=== PATIENT | male | born 1945 | race Caucasian/White ===

== ENCOUNTER 2021-06-13 08:54 | Day surgery (SDC) | payer MEDICARE ==
[2021-06-13] VITALS (14 sets, daily range): BP systolic 141–187; BP diastolic 67–100
[~2021-06-13] VITALS: Ht 173 cm; Wt 92.0 kg
--- OUTSIDE RECORDS SUMMARY | 2021-06-13 08:58 | XMS REPORT ---
Author Walter Oglesby Organization [facility] Address [address] [place], [place] [address] Care Team Providers Care Asbestos Hazard Abatement Worker Name Role Phone Josefina Mazariegos PCP Allergies and Adverse Reactions Not available. Plan of Treatment Planned Activity Comments Planned Date Planned Time Plan/Goal CMP 03/17/2019 12:00 AM CBC W/ AUTO DIFF (RFLX MAN DIFF IF IND). 05/28/2021 12:00 AM CMP 05/28/2021 12:00 AM LIPID PANEL 05/28/2021 12:00 AM HGB A1C 05/28/2021 12:00 AM PSA TOTAL 05/28/2021 12:00 AM Medications Active Name Start Date Estimated Completion Date SIG Co mments Aspir-81 81 mg oral tablet,delayed release (DR/EC) take 1 tablet (81 mg) by oral route once daily carvedilol 25 mg tablet 01/12/2021 07/11/2021 ... TAKE 1 TABLET BY MOUTH TWICE DAILY WITH FOOD ... furosemide 20 mg tablet 05/11/2021 10/08/2021 TAKE 1 T ABLET BY MOUTH DAILY ... INCREASE TO 2 TABLETS FOR 5 DAYS THEN RESUME NORMAL DOSAGE ... diazepam 5 mg oral tablet 05/11/2021 08/09/2021 take 1 tablet (5 mg) by oral route 3 times per day as needed for 90 days amlodipine 5 mg tablet 05/12/2021 02/06/2022 ... TAKE 1 TABLET BY MOUTH EVERY DAY ... lisinopril 20 mg tablet 05/12/2021 02/06/2022 ... TAKE 1 TABLET BY MOUTH EVERY DAY ... meloxicam 15 mg tablet 05/12/2021 02/06/2022 ... TAKE 1 TABLET BY MOUTH EVERY DAY ... isosorbide mononitrate ER 30 mg tablet,extended release 24 h r 05/23/2021 05/18/2022 ... TAKE 1 TABLET BY MOUTH EVERY DAY IN THE MORNING .. . Name Start Date Expiration Date SIG Comments azithromycin 500 mg oral tablet 05/14/2021 05/21/2021 take 1 tablet (500 mg) by oral route once daily for 7 days prednisone 20 mg oral tablet 05/14/2021 05/21/2021 kuldip e 1 tablet (20 mg) by oral route once daily for 7 days Discontinued Name Start Date Discontinued Date SIG Comments Lopid 600 mg oral tablet 03/21/2019 04/14/2021 take 1 tablet (600 mg) by oral route 2 times per day 30 minutes before morning and evening meal for 30 days metformin 500 mg oral tablet 03/21/2019 04/14/2021 kuldip e 1 tablet (500 mg) by oral route 2 times per day with morning and evening meals for 30 days Silvadene 1 % topical cream 04/10/2019 04/14/2021 appl y a 1/16 inch (1.5 mm) thick layer to area by topical route 2 times per day furosemide 20 mg oral tablet 04/10/2019 04/14/2021 Kuldip e 1 Tablet (20 mg) by mouth daily Increase to 2 tablets for 5 days then resume normal dosage. Augmentin 875-125 mg oral tablet 04/14/2019 04/14/2019 take 1 tablet by oral route every 12 hours for 7 days Levaquin 500 mg oral tablet 05/02/2019 04/14/2021 take 1 tablet (500 mg) by oral route once daily for 10 days Problem List Not available. Vital Signs Date Time BP-Sys(mm[Hg] BP-Justyna(mm[Hg]) HR(bpm) RR(rpm) Temp WT HT HC BMI BSA BMI Percentile O2 Sat(%) 05/14/2021 9:41:00 AM 140 mm[Hg] 72 mm[Hg] 69 {beats}/min 20 rpm 102.2 F 96 % 2019 10:57:00 AM 156 mm[Hg] 82 mm[Hg] 72 {beats}/min 18 rpm 98.1 F 209.312 lbs 70 in 30.0329 kg/m2 2.1654 m2 96 % 04/23/2019 11:03:00 AM 170 mm[Hg] 84 mm[Hg] 74 {beats}/min 18 rpm 98.8 F 211 lbs 70 in 30.28 kg/m2 2.17 m2 94 % 04/14/2019 11:31:00 AM 150 mm[Hg] 88 mm[Hg] 75 {beats}/min 18 rpm 99 F 211 lbs 70 in 30.275 kg/m2 2.1742 m2 96 % 04/10/2019 11:10:00 AM 150 mm[Hg] 78 mm[Hg] 67 {beats}/min 18 rpm 98.4 F 211 lbs 70 in 30.28 kg/m2 2.17 m2 96 % 03/17/2019 11:15:00 AM 190 mm[Hg] 100 mm[Hg] 67 {beats}/min 18 rpm 98.4 F 215 lbs 70 in 30.849 kg/m2 2.1947 m2 96 % Social History Name Description Comments Tobacco Never smoker History of Procedures Date Ordered Description Order Status 03/17/2019 12:00 AM LIPID PANEL Reviewed 03/17/2019 12:00 AM GLYCOSYLATED HEMOGLOBIN TEST Reviewed 03/17/2019 12:00 AM COMPLETE CBC W/AUTO DIFF WBC Reviewed 03/17/2019 12:00 AM ASSAY THYROID STIM HORMONE Reviewed 03/17/2019 12:00 AM ROUTINE VENIPUNCTURE Reviewed 04/10/2019 12:00 AM Rocephin 1 gram Injection Reviewed 04/10/2019 12:00 AM X-RAY EXAM OF FOOT Reviewed 04/10/2019 12:00 AM THER/PROPH/DIAG INJ SC/IM Reviewed 04/10/2019 12:00 AM TD VACCINE NO PRSRV 7/> IM Reviewed 04/10/2019 12:00 AM MICROBIOLOGY PROCEDURE Reviewed 2019 12:00 AM Decadron 8mg Injection Reviewed 2019 12:00 AM Depo-Medrol 80mg Injection Reviewed 2019 12:00 AM THER/PROPH/DIAG INJ SC/IM Reviewed 05/14/2021 12:00 AM COVID-19 Testing Reviewed 05/28/2021 12:00 AM COLLECTION VENOUS BLOOD VENIPUNCTURE Rev iewed Results Summary Date and Description Results 03/17/2019 4:59 PM GLUCOSE 138 SODIUM 140 POTAS SIUM 4.4 CHLORIDE 106.0 mmol/LCO2 25 BUN 25.0 mg/dLCREATININE 1.0 mg/dLSGOT/AST 19 SGPT/ALT 25 ALK PHOS 54 TOTAL PROTEIN 7.5 ALBUMIN 4.6 TOTAL BILI 0.6 CALCIUM 9.70 mg/dLAGE 73 GFR NonAA 74 GFR AA 90 eGFR 74 eGFR AA* >60 mL/min/1.73 [id number] 187 CHOLESTEROL 189.0 mg/dLHDL 37 TOT CHOL/HDL 5.1 LDL (CALC) 115 WBC 3.1 RBC 3.37 HGB 10.70 g/dLHCT 32.90 %MCV 98.0 fLMCH 31.80 pgMCHC 32.50 g/dLRDW SD 52 fLRDW CV 14.90 %MPV 13.80 fLPLT 87 NRBC# 0.00 NRBC% 0.0 %NEUT 24.9 %LYMP 54.2 %MONO 16.5 %EOS 0.6 %BASO 0.3 #NEUT 0.77 #LYMP 1.68 #MONO 0.51 #EOS 0.02 #BASO 0.01 MANUAL DIFF SEE BELOW SEGS 22 BANDS 8 LYMPHS 50 MONOS 15 EOS 3 METAS 2 TSH 0.74 HGB A1C 8.10 %Est Avg Glucose 185.8 05/14/2021 12:54 PM [id number] NOT DETECTED History Of Immunizations Name Date Admin Mfg Name Mfg Code Trade Name Lot# Route Inj Vis Given Vis Pub CVX Td 04/10/2019 GlaxveriCARine SKB KINRIX Intramuscular L eft Upper Arm 04/10/2019 09/03/2021 113 History of Past Illness Name Date of Onset Comments Hypertension Diabetes Anxiety Hyperlipidemia Diabetes Mar 17 2019 11:19AM Hypertension Mar 17 2019 11:19AM Hyperlipemia Mar 17 2019 11:19AM Hypothyroidism Mar 17 2019 11:19AM Cellulitis of left foot Apr 10 2019 11:19AM Cellulitis of left foot Apr 11 2019 9:10AM Pain of toe of right foot Apr 14 2019 11:34AM Cellulitis of right lower extremity Apr 14 2019 11:34AM Cellulitis of left foot Apr 23 2019 11:06AM Sinusitis 2019 11:01AM Left foot pain 2019 11:01AM Cellulitis of left lower extremity 2019 11:01AM HTN (hypertension) Apr 14 2021 1:05PM Diabetes Apr 14 2021 1:05PM Fever May 14 2021 9:43AM Cough Sep 11 2021 9:43AM SOB (shortness of breath) on exertion May 14 2021 9:43AM Diabetes May 28 2021 8:52AM HTN (hypertension) May 28 2021 8:52AM Hyperlipidemia May 28 2021 8:52AM Screening for prostate cancer May 28 2021 8:52AM Payers Insurance Name Company Name Plan Name Plan Number Policy Number Moncho cy Group Number Start Date Medicare RHC Medicare RHC [id number] N/ A [id number] N/ A Medicare Part B Medicare Of [place] [id number] N/A Medicare Part A Medicare - Lab/Xray [id number] N/A History of Encounters Visit Date Visit Type Provider 05/28/2021 Laboratory Josefina Mazariegos APR N 05/14/2021 Office visit Josefina Mazariegos APR N 04/14/2021 Office visit Frida English BRAKES INSPECTOR 2019 Office visit Frida English BRAKES INSPECTOR 04/23/2019 Office visit Frida English BRAKES INSPECTOR 04/14/2019 Office visit Frida English BRAKES INSPECTOR 04/10/2019 Office visit Frida English BRAKES INSPECTOR 03/17/2019 Office visit Frida English BRAKES INSPECTOR
--- OUTSIDE RECORDS SUMMARY | 2021-06-13 08:58 | XMS REPORT ---
Author Walter Oglesby Organization [facility] Address [address] [place], [place] [id number] Care Team Providers Care Director Online Marketing Name Role Phone Josefina Mazariegos PCP Allergies and Adverse Reactions Not available. Plan of Treatment Planned Activity Comments Planned Date Planned Time Plan/Goal [facility] 03/17/2019 12:00 AM Medications Active Name Start Date [...] AM COVID-19 Testing Reviewed 05/28/2021 12:00 AM COMPLETE CBC W/AUTO DIFF WBC Reviewed 05/28/2021 12:00 AM COMPREHEN METABOLIC PANEL Reviewed 05/28/2021 12:00 AM LIPID PANEL Reviewed 05/28/2021 12:00 AM GLYCOSYLATED HEMOGLOBIN TEST Reviewed 05/28/2021 12:00 AM ASSAY OF PSA TOTAL Reviewed 05/28/2021 12:00 AM COLLECTION VENOUS BLOOD VENIPUNCTURE Rev iewed 06/03/2021 12:00 AM BL SMEAR W/DIFF WBC COUNT Returned 06/03/2021 12:00 AM COLLECTION VENOUS BLOOD VENIPUNCTURE Rev iewed 06/07/2021 12:00 AM BL SMEAR W/DIFF WBC COUNT Reviewed 06/08/2021 12:00 AM COLLECTION VENOUS BLOOD VENIPUNCTURE Rev iewed Results Summary Date and Description Results 03/17/2019 4:59 PM GLUCOSE 138 SODIUM 140 POTAS SIUM 4.4 CHLORIDE 106.0 mmol/LCO2 25 BUN 25.0 mg/dLCREATININE 1.0 mg/dLSGOT/AST 19 SGPT/ALT 25 ALK PHOS 54 TOTAL PROTEIN 7.5 ALBUMIN 4.6 TOTAL BILI 0.6 CALCIUM 9.70 mg/dLAGE 73 GFR NonAA 74 GFR AA 90 eGFR 74 eGFR AA* >60 mL/min/1.73 [id number] 187 CHOLESTEROL 189.0 mg/dLHDL 37 TOT CHOL/HDL [...] %Est Avg Glucose 185.8 05/14/2021 12:54 PM [id number] NOT DETECTED 05/28/2021 8:55 AM GLUCOSE 148 SODIUM 136 POTAS SIUM 4.2 CHLORIDE 105.0 mmol/LCO2 25 BUN 22.0 mg/dLCREATININE 1.20 mg/dLSGOT/AST 24 SGPT/ALT 16 ALK PHOS 61 TOTAL PROTEIN 7.7 ALBUMIN 3.9 TOTAL BILI 0.5 CALCIUM 9.10 mg/dLAGE 76 GFR NonAA 59 GFR AA 72 eGFR 59 mL/min/1.73meGFR AA* >60 mL/min/1.73mTRIGLYCERIDES 133 CHOLESTEROL 135.0 mg/dLHDL 40 TOT CHOL/HDL 3.4 LDL (CALC) 68 PSA TOTAL 1.090 ng/mLHGB A1C 6.0 %Est Avg Glucose 125.5 WBC 14.3 RBC 2.13 HGB 6.90 g/dLHCT 23.50 %MCV 110.0 fLMCH 32.40 pgMCHC 29.40 g/dLRDW SD 69 %RDW CV 17.90 %PLT 7 x10E3/uLNRBC# 0.10 NRBC% 0.7 %NEUT 44.4 %LYMP 19.7 %MONO 19.9 %EOS 0.1 %BASO 0.3 #NEUT 6.34 #LYMP 2.81 #MONO 2.85 #EOS 0.02 #BASO 0.05 MANUAL DIFF SEE BELOW SEGS 24 BANDS 16 LYMPHS 20 MONOS 16 EOS 1 METAS 15 MYELO 6 PROS 2 MACRO 3+ ANISO 2+ 06/07/2021 11:50 AM WBC 9.5 RBC 2.53 HGB 7.70 g/ dLHCT 25.80 %MCV 102.0 fLMCH 30.40 pgMCHC 29.80 g/dLRDW SD 59 %RDW CV 16.10 %PLT 6 x10E3/uLPLTS PLTS CHECKD NRBC# 0.06 NRBC% 0.6 %NEUT 41.3 %LYMP 24.3 %MONO 16.7 %EOS 0.3 %BASO 0.4 #NEUT 3.94 #LYMP 2.32 #MONO 1.59 #EOS 0.03 #BASO 0.04 SEGS 27 BANDS 17 LYMPHS 26 MONOS 14 EOS 3 METAS 5 MYELO 6 PROS 1 BLASTS 1 ATYP LYMPHS FEW MACRO 1+ ANISO 1+ POIK 1+ HYPO 1+ POLYCHROMASIA 1+ History Of Immunizations Name Date Admin Mf Name Mf Code Trade Name Lot# Route Inj Vis Given Vis Pub CVX Td 04/10/2019 GlaxoSmXMS Penvisionine SKB KINRIX Intramuscular L eft Upper Arm [...] 1:05PM Fever May 14 2021 9:43AM Cough May 14 2021 9:43AM SOB (shortness of breath) on exertion May 14 2021 9:43AM Diabetes May 28 2021 8:52AM HTN (hypertension) May 28 2021 8:52AM Hyperlipidemia May 28 2021 8:52AM Screening for prostate cancer May 28 2021 8:52AM Thrombocythemia Jun 03 2021 6:40AM Anemia Jun 03 2021 6:40AM Fatigue Jun 03 2021 6:40AM Shortness of breath Jun 03 2021 6:40AM Anemia with low platelet count Jun 07 2021 10:09AM Thrombocytopenia Jun 08 2021 10:33AM Anemia Jun 08 2021 10:33AM Fatigue Jun 08 2021 10:33AM Myelodysplastic syndrome, unspecified Jun 08 2021 2:26PM Anemia in neoplastic disease Jun 08 2021 2:26PM Payers Insurance Name Company Name Plan Name Plan Number Policy Number Moncho cy Group Number Start Date Medicare RHC Medicare RHC [id number] N/ A [facility] [id number] N/ A Medicare Part B Medicare Of [place] [id number] N/A Medicare Part A Medicare - Lab/Xray [id number] N/A History of Encounters Visit Date Visit Type Provider 06/08/2021 Laboratory Josefina Mazariegos APR N 06/04/2021 Laboratory Nhung Crespo SCHOOL JANITOR 06/01/2021 Office visit Josefina Mazariegos APR N 05/28/2021 Laboratory Josefina Mazariegos APR N 05/14/2021 Office visit Josefina Mazariegos APR N 04/14/2021 Office visit Frida English SCHOOL JANITOR 2019 Office visit Frida English SCHOOL JANITOR 04/23/2019 Office visit Frida English SCHOOL JANITOR 04/14/2019 Office visit Frida English SCHOOL JANITOR 04/10/2019 Office visit Frida English SCHOOL JANITOR 03/17/2019 Office visit Frida English SCHOOL JANITOR
--- OUTSIDE RECORDS SUMMARY | 2021-06-13 08:58 | XMS REPORT ---
Author Walter Oglesby Organization [facility] Address [address] [place], [place] [address] Care Team Providers Care Activity Aid Name Role Phone Josefina Mazariegos PCP Allergies and Adverse Reactions Not available. Plan of Treatment Planned Activity Comments Planned Date Planned Time Plan/Goal [facility] 03/17/2019 12:00 AM Medications Active Name [...] 90 eGFR 74 eGFR AA* >60 mL/min/1.73 [id number] 187 CHOLESTEROL 189.0 mg/dLHDL 37 TOT CHOL/HDL [...] %Est Avg Glucose 185.8 05/14/2021 12:54 PM [id number] NOT DETECTED 05/28/2021 8:55 AM GLUCOSE 148 [...] Vis Given Vis Pub CVX Td 04/10/2019 GlaxoSmMicroCoaline SKB KINRIX Intramuscular L eft Upper Arm [...] Number Start Date Medicare RHC Medicare RHC [id number] N/ A [facility] [id number] N/ A Medicare Part B Medicare Of [place] [id number] N/A Medicare Part A Medicare - Lab/Xray [id number] N/A History of Encounters Visit Date Visit Type Provider 06/08/2021 Laboratory Josefina Mazariegos APR N 06/04/2021 Laboratory Nhung Crespo SERVICE PLUMBER 06/01/2021 Office visit Josefina Mazariegos APR N 05/28/2021 Laboratory Josefina Mazariegos APR N 05/14/2021 Office visit Josefina Mazariegos APR N 04/14/2021 Office visit Frida English SERVICE PLUMBER 2019 Office visit Frida English SERVICE PLUMBER 04/23/2019 Office visit Frida English SERVICE PLUMBER 04/14/2019 Office visit Frida English SERVICE PLUMBER 04/10/2019 Office visit Frida English SERVICE PLUMBER 03/17/2019 Office visit Frida English SERVICE PLUMBER
--- OUTSIDE RECORDS SUMMARY | 2021-06-13 08:58 | XMS REPORT ---
Author Walter Prasad [facility] ou Address [address] [place], [place] [id number] Care Team Providers Care Fence Erector Supervisor Name Role Phone Nhung Crespo PCP Allergies and Adverse Reactions Not available. Plan of Treatment Planned Activity Comments Planned Date Planned Time Plan/Goal [facility] 03/17/2019 12:00 AM Medications Active Name [...] AM COLLECTION VENOUS BLOOD VENIPUNCTURE Rev iewed 06/09/2021 12:00 AM COLLECTION VENOUS BLOOD VENIPUNCTURE Rev iewed Results Summary Date and Description Results 03/17/2019 4:59 PM GLUCOSE 138 SODIUM 140 POTAS SIUM 4.4 CHLORIDE 106.0 mmol/LCO2 25 BUN 25.0 mg/dLCREATININE 1.0 mg/dLSGOT/AST 19 SGPT/ALT 25 ALK PHOS 54 TOTAL PROTEIN 7.5 ALBUMIN 4.6 TOTAL BILI 0.6 CALCIUM 9.70 mg/dLAGE 73 GFR NonAA 74 GFR AA 90 eGFR 74 eGFR AA* >60 mL/min/1.73 [id number] 187 CHOLESTEROL 189.0 mg/dLHDL 37 TOT CHOL/HDL [...] %Est Avg Glucose 185.8 05/14/2021 12:54 PM [id number] NOT DETECTED 05/28/2021 8:55 AM GLUCOSE 148 [...] 1+ History Of Immunizations Name Date Admin Mfg Name Mfg Code Trade Name Lot# Route Inj Vis Given Vis Pub CVX Td 04/10/2019 GlaxoSmIssuuine SKB KINRIX Intramuscular L eft Upper Arm [...] in neoplastic disease Jun 08 2021 2:26PM Myelodysplastic syndrome, unspecified Jun 09 2021 8:33AM Anemia in neoplastic disease Jun 09 2021 8:33AM Payers Insurance Name Company Name Plan Name Plan Number Policy Number Moncho cy Group Number Start Date Medicare RHC Medicare RHC [id number] N/ A [facility] [id number] N/ A Medicare Part B Medicare Of [place] [id number] N/A Medicare Part A Medicare - Lab/Xray [id number] N/A History of Encounters Visit Date Visit Type Provider 06/09/2021 Laboratory Nhung Crespo ASSESSMENT NURSE 06/08/2021 Laboratory Josefina Mazariegos APR N 06/04/2021 Laboratory Nhung Crespo ASSESSMENT NURSE 06/01/2021 Office visit Josefina Mazariegos APR N 05/28/2021 Laboratory Josefina Mazariegos APR N 05/14/2021 Office visit Josefina Mazariegos APR N 04/14/2021 Office visit Frida English ASSESSMENT NURSE 2019 Office visit Frida English ASSESSMENT NURSE 04/23/2019 Office visit Frida English ASSESSMENT NURSE 04/14/2019 Office visit Frida English ASSESSMENT NURSE 04/10/2019 Office visit Frida English ASSESSMENT NURSE 03/17/2019 Office visit Frida English ASSESSMENT NURSE
--- OUTSIDE RECORDS SUMMARY | 2021-06-13 08:58 | XMS REPORT ---
Author Walter Oglesby Organization [facility] Address [address] [place], [place] [address] Care Team Providers Care Aerophysicist Name Role Phone Josefina Mazariegos PCP Allergies and Adverse Reactions Not available. Plan of Treatment Planned Activity Comments Planned Date Planned Time Plan/Goal [facility] 03/17/2019 12:00 AM Medications Active Name Start Date Estimated Completion Date SIG Co mments Aspir-81 81 mg oral tablet,delayed release (DR/EC) take 1 tablet (81 mg) by oral route once daily isosorbide mononitrate 30 mg oral tablet extended release 24 hr 04/29/2020 ... TAKE 1 TABLET BY MOUTH EVERY DAY IN THE MORNING ... carvedilol 25 mg tablet 01/12/2021 07/11/2021 ... [...] 1 TABLET BY MOUTH EVERY DAY ... azithromycin 500 mg oral tablet 05/14/2021 05/21/2021 [...] 2019 12:00 AM THER/PROPH/DIAG INJ SC/IM Reviewed Results Summary Date and Description Results 03/17/2019 4:59 PM GLUCOSE 138 SODIUM 140 POTAS SIUM 4.4 CHLORIDE 106.0 mmol/LCO2 25 BUN 25.0 mg/dLCREATININE 1.0 mg/dLSGOT/AST 19 SGPT/ALT 25 ALK PHOS 54 TOTAL PROTEIN 7.5 ALBUMIN 4.6 TOTAL BILI 0.6 CALCIUM 9.70 mg/dLAGE 73 GFR NonAA 74 GFR AA 90 eGFR 74 eGFR AA* >60 mL/min/1.73 [id number] 187 CHOLESTEROL 189.0 mg/dLHDL 37 TOT CHOL/HDL [...] HGB A1C 8.10 %Est Avg Glucose 185.8 History Of Immunizations Name Date Admin Mfg Name Mfg Code Trade Name Lot# Route Inj Vis Given Vis Pub CVX Td 04/10/2019 GlaxoSmDEMANDITine SKB KINRIX Intramuscular L eft Upper Arm [...] breath) on exertion May 14 2021 9:43AM Payers Insurance Name Company Name Plan Name Plan Number Policy Number Moncho cy Group Number Start Date Medicare [facility] Medicare RHC [id number] N/ A [id number] N/ A Medicare Part B Medicare Of [place] [id number] N/A Medicare Part A Medicare - Lab/Xray [id number] N/A History of Encounters Visit Date Visit Type Provider 05/14/2021 Office visit Josefina Mazariegos APR N 04/14/2021 Office visit Frida English SNAGGER 2019 Office visit Frida English SNAGGER 04/23/2019 Office visit Frida English SNAGGER 04/14/2019 Office visit Frida English SNAGGER 04/10/2019 Office visit Frida English SNAGGER 03/17/2019 Office visit Frida English SNAGGER
--- OUTSIDE RECORDS SUMMARY | 2021-06-13 08:58 | XMS REPORT ---
Author Walter Prasad [facility] ou Address [address] [place], [place] [address] Care Team Providers Care Buggy Loader Name Role Phone Nhung Crespo PCP Allergies and Adverse Reactions Not available. Plan of Treatment Planned Activity Comments Planned Date Planned Time Plan/Goal CMP 03/17/2019 12:00 AM CBC W/ MANUAL DIFF 06/03/2021 12:00 AM CBC W/ MANUAL DIFF 06/07/2021 12:00 AM Medications Active Name Start Date [...] BLOOD VENIPUNCTURE Rev iewed 06/03/2021 12:00 AM COLLECTION VENOUS BLOOD VENIPUNCTURE [...] 90 eGFR 74 eGFR AA* >60 mL/min/1.73 [id number] 187 CHOLESTEROL 189.0 mg/dLHDL 37 TOT CHOL/HDL [...] %Est Avg Glucose 185.8 05/14/2021 12:54 PM [id number] NOT DETECTED 05/28/2021 8:55 AM GLUCOSE 148 [...] 6 PROS 2 MACRO 3+ ANISO 2+ History Of Immunizations Name Date Admin Mfg Name Mfg Code Trade Name Lot# Route Inj Vis Given Vis Pub CVX Td 04/10/2019 Silith.IO SKB KINRIX Intramuscular L eft Upper Arm [...] low platelet count Jun 07 2021 10:09AM Payers Insurance Name Company Name Plan Name Plan Number Policy Number Moncho cy Group Number Start Date Medicare RHC Medicare RHC [id number] N/ A BCBS [facility] [place] [id number] N/ A Medicare Part B Medicare Of [place] [id number] N/A Medicare Part A Medicare - Lab/Xray [id number] N/A History of Encounters Visit Date Visit Type Provider 06/04/2021 Laboratory Nhung Crespo LOAD OUT WORKER 06/01/2021 Office visit Josefina Mazariegos APR N 05/28/2021 Laboratory Josefina Mazariegos APR N 05/14/2021 Office visit Josefina Mazariegos APR N 04/14/2021 Office visit Frida English LOAD OUT WORKER 2019 Office visit Frida English LOAD OUT WORKER 04/23/2019 Office visit Frida English LOAD OUT WORKER 04/14/2019 Office visit Frida English LOAD OUT WORKER 04/10/2019 Office visit Frida English LOAD OUT WORKER 03/17/2019 Office visit Frida English LOAD OUT WORKER
--- OUTSIDE RECORDS SUMMARY | 2021-06-13 08:58 | XMS REPORT ---
Author Walter Prasad [facility] ou Address [address] [place], [place] [address] Care Team Providers Care Highway Painter Name Role Phone Nhung Crespo PCP Allergies and Adverse Reactions Not available. Plan of Treatment Planned Activity Comments Planned Date Planned Time Plan/Goal [facility] 03/17/2019 12:00 AM Medications Active Name Start [...] 90 eGFR 74 eGFR AA* >60 mL/min/1.73 [id number] 187 CHOLESTEROL 189.0 mg/dLHDL 37 TOT CHOL/HDL [...] %Est Avg Glucose 185.8 05/14/2021 12:54 PM [id number] NOT DETECTED 05/28/2021 8:55 AM GLUCOSE 148 [...] Vis Given Vis Pub CVX Td 04/10/2019 GlaxoSmGracious Eloiseine SKB KINRIX Intramuscular L eft Upper Arm [...] Number Start Date Medicare RHC Medicare RHC [id number] N/ A [id number] N/ A Medicare Part B Medicare Of [place] [id number] N/A Medicare Part A Medicare - Lab/Xray [id number] N/A History of Encounters Visit Date Visit Type Provider 06/09/2021 Laboratory Nhung Crespo DIRECTOR STUDENT UNION 06/08/2021 Laboratory Josefina Mazariegos APR N 06/04/2021 Laboratory Nhung Crespo DIRECTOR STUDENT UNION 06/01/2021 Office visit Josefina Mazariegos APR N 05/28/2021 Laboratory Josefina Mazariegos APR N 05/14/2021 Office visit Josefina Mazariegos APR N 04/14/2021 Office visit Frida English DIRECTOR STUDENT UNION 2019 Office visit Frida English DIRECTOR STUDENT UNION 04/23/2019 Office visit Frida English DIRECTOR STUDENT UNION 04/14/2019 Office visit Frida English DIRECTOR STUDENT UNION 04/10/2019 Office visit Frida English DIRECTOR STUDENT UNION 03/17/2019 Office visit Frida English DIRECTOR STUDENT UNION
--- OUTSIDE RECORDS SUMMARY | 2021-06-13 08:58 | XMS REPORT ---
Author Walter Prasad [facility] Physicians ou Address [address] [place], [place] [address] Care Team Providers Care Tail Dogger Name Role Phone Nhung Crespo PCP Allergies and Adverse Reactions Not available. Plan of Treatment Planned Activity Comments Planned Date Planned Time Plan/Goal [facility] 03/17/2019 12:00 AM Medications Active Name Start [...] AM BL SMEAR W/DIFF WBC COUNT Reviewed Results Summary Date and Description Results 03/17/2019 4:59 PM GLUCOSE 138 SODIUM 140 POTAS SIUM 4.4 CHLORIDE 106.0 mmol/LCO2 25 BUN 25.0 mg/dLCREATININE 1.0 mg/dLSGOT/AST 19 SGPT/ALT 25 ALK PHOS 54 TOTAL PROTEIN 7.5 ALBUMIN 4.6 TOTAL BILI 0.6 CALCIUM 9.70 mg/dLAGE 73 GFR NonAA 74 GFR AA 90 eGFR 74 eGFR AA* >60 mL/min/1.73 [id number] 187 CHOLESTEROL 189.0 mg/dLHDL 37 TOT CHOL/HDL [...] %Est Avg Glucose 185.8 05/14/2021 12:54 PM [id number] NOT DETECTED 05/28/2021 8:55 AM GLUCOSE 148 [...] Vis Given Vis Pub CVX Td 04/10/2019 nCrypted Cloud SKB KINRIX Intramuscular L eft Upper Arm [...] 2021 10:33AM Fatigue Jun 08 2021 10:33AM Payers Insurance Name Company Name Plan Name Plan Number Policy Number Moncho cy Group Number Start Date Medicare RHC Medicare RHC [id number] N/ A BCBS Bcbs [facility] [id number] N/ A Medicare Part B Medicare Of [place] [id number] N/A Medicare Part A Medicare - Lab/Xray [id number] N/A History of Encounters Visit Date Visit Type Provider 06/04/2021 Laboratory Nhung Crespo BEE TENDER 06/01/2021 Office visit Josefina Mazariegos APR N 05/28/2021 Laboratory Josefina Mazariegos APR N 05/14/2021 Office visit Josefina Mazariegos APR N 04/14/2021 Office visit Frida English BEE TENDER 2019 Office visit Frida English BEE TENDER 04/23/2019 Office visit Frida English BEE TENDER 04/14/2019 Office visit Frida English BEE TENDER 04/10/2019 Office visit Frida English BEE TENDER 03/17/2019 Office visit Frida English BEE TENDER
--- OUTSIDE RECORDS SUMMARY | 2021-06-13 08:58 | XMS REPORT ---
Author Walter Oglesby Organization [facility] Address [address] [place], [place] [id number] Care Team Providers Care Operations Intern Name Role Phone Josefina Mazariegos PCP Allergies and Adverse Reactions Not available. Plan of Treatment Planned Activity Comments Planned Date Planned Time Plan/Goal CMP 03/17/2019 12:00 AM CBC W/ MANUAL DIFF 06/03/2021 12:00 AM Medications Active Name Start Date [...] 90 eGFR 74 eGFR AA* >60 mL/min/1.73 [id number] 187 CHOLESTEROL 189.0 mg/dLHDL 37 TOT CHOL/HDL [...] %Est Avg Glucose 185.8 05/14/2021 12:54 PM [id number] NOT DETECTED 05/28/2021 8:55 AM GLUCOSE 148 [...] Vis Given Vis Pub CVX Td 04/10/2019 [employer] SKB KINRIX Intramuscular L eft Upper Arm [...] Shortness of breath Jun 03 2021 6:40AM Payers Insurance Name Company Name Plan Name Plan Number Policy Number [employer] Group Number Start Date Medicare RHC Medicare RHC [id number] N/ [id number] N/ A Medicare Part B Medicare Of [place] [id number] N/A Medicare Part A Medicare - Lab/Xray [id number] N/A History of Encounters Visit Date Visit Type Provider 06/01/2021 Office visit Josefina [facility] [employer] APR N 05/28/2021 Laboratory Josefina L. Yair APR N 05/14/2021 Office visit Josefina [facility] [employer] APR N 04/14/2021 Office visit Frida English INSPECTOR EXHAUST EMISSIONS 2019 Office visit Frida English INSPECTOR EXHAUST EMISSIONS 04/23/2019 Office visit Frida English INSPECTOR EXHAUST EMISSIONS 04/14/2019 Office visit Frida English INSPECTOR EXHAUST EMISSIONS 04/10/2019 Office visit Frida English INSPECTOR EXHAUST EMISSIONS 03/17/2019 Office visit Frida English INSPECTOR EXHAUST EMISSIONS
--- OUTSIDE RECORDS SUMMARY | 2021-06-13 08:59 | XMS REPORT ---
Author Walter Thomas Organization [facility] Address [address] [facility] [address] [place], [place] [id number] Care Team Providers Care Domestic Maid Name Role Phone Frida English PCP Allergies and Adverse Reactions Not available. Plan of Treatment Planned Activity Comments Planned Date Planned Time Plan/Goal [facility] 03/17/2019 12:00 AM Medications Active Name Start Date Estimated Completion Date SIG Co mments Aspir-81 81 mg oral tablet,delayed release (DR/EC) take 1 tablet (81 mg) by oral route once daily isosorbide mononitrate 30 mg oral tablet extended release 24 hr 04/29/2020 ... TAKE 1 TABLET BY MOUTH EVERY DAY IN THE MORNING ... amlodipine 5 mg oral tablet 04/29/2020 ... TAKE 1 TABLET BY MOUTH EVERY DAY ... lisinopril 20 mg oral tablet 04/29/2020 ... TAKE 1 TABLET BY MOUTH EVERY DAY ... carvedilol 25 mg tablet 01/12/2021 07/11/2021 ... TAKE 1 TABLET BY MOUTH TWICE DAILY WITH FOOD ... meloxicam 15 mg oral tablet 2021 06/06/2021 ... TAKE 1 TABLET BY MOUTH EVERY DAY ... Name Start Date Expiration Date SIG Comments diazepam 5 mg oral tablet 09/21/2020 12/20/2020 take 1 tablet (5 mg) by oral route 3 times per day as needed for 90 days Discontinued Name Start Date Discontinued Date [...] HC BMI BSA BMI Percentile O2 Sat(%) 2019 10:57:00 AM 156 mm[Hg] 82 mm[Hg] [...] 90 eGFR 74 eGFR AA* >60 mL/min/1.73 [id number] 187 CHOLESTEROL 189.0 mg/dLHDL 37 TOT CHOL/HDL [...] Vis Given Vis Pub CVX Td 04/10/2019 [employer] SKB KINRIX Intramuscular L eft Upper Arm 04/10/2019 09/03/2020 113 History of Past Illness Name Date [...] 2021 1:05PM Diabetes Apr 14 2021 1:05PM Payers Insurance Name Company Name Plan Name Plan Number Policy Number [employer] Group Number Start Date Medicare RHC Medicare RH [id number] N/ A [id number] N/ A Medicare Part B Medicare Of [place] [id number] N/A Medicare Part A Medicare - Lab/Xray [id number] N/A History of Encounters Visit Date Visit Type Provider 04/14/2021 Office visit Frida English SLATE WORKER 2019 Office visit Frida English SLATE WORKER 04/23/2019 Office visit Frida English SLATE WORKER 04/14/2019 Office visit Frida English SLATE WORKER 04/10/2019 Office visit Frida English SLATE WORKER 03/17/2019 Office visit Frida English SLATE WORKER
--- OUTSIDE RECORDS SUMMARY | 2021-06-13 08:59 | XMS REPORT ---
Author Walter Thomas Organization [facility] Address [address] [place], [place] [id number] Care Team Providers Care Leather Coater Name Role Phone Frida English PCP Allergies and Adverse Reactions Not available. Plan of Treatment Planned Activity Comments Planned Date Planned Time Plan/Goal [facility] 03/17/2019 12:00 AM Medications Active Name Start [...] MOUTH EVERY DAY ... meloxicam 15 mg oral tablet 04/29/2020 ... TAKE 1 TABLET BY MOUTH EVERY DAY ... carvedilol 25 mg tablet 01/12/2021 07/11/2021 ... TAKE 1 TABLET BY MOUTH TWICE DAILY WITH FOOD ... Name Start Date Expiration Date SIG [...] 90 eGFR 74 eGFR AA* >60 mL/min/1.73 [id number] 187 CHOLESTEROL 189.0 mg/dLHDL 37 TOT CHOL/HDL [...] Vis Given Vis Pub CVX Td 04/10/2019 [employer] SKB KINRIX Intramuscular L eft Upper Arm [...] Number Start Date Medicare RHC Medicare RH [id number] N/ [id number] N/ A Medicare Part B Medicare Of [place] [id number] N/A Medicare Part A Medicare - Lab/Xray [id number] N/A History of Encounters Visit Date Visit Type Provider 04/14/2021 Office visit Frida English CERAMIC COATER 2019 Office visit Frida English CERAMIC COATER 04/23/2019 Office visit Frida English CERAMIC COATER 04/14/2019 Office visit Frida English CERAMIC COATER 04/10/2019 Office visit Frida English CERAMIC COATER 03/17/2019 Office visit Frida English CERAMIC COATER
[2021-06-13] MEDS ORDERED: NS IV 1000 ML 1,000 ML IV STA (09:20)
[2021-06-13] MEDS ORDERED: fentaNYL INJ 100 MCG/2 ML AMP IVP ONE (09:30)
[2021-06-13] MEDS ORDERED: LIDOCAINE 1% INJ 20 ML 20 ML VIAL INJ ONE (09:30)
[2021-06-13] MEDS ORDERED: MIDAZOLAM 2 MG/2 ML (VERSED) VIAL IVP ONE (09:30)
[2021-06-13 09:45] LABS: HEMOGLOBIN 9.2 g/dL (13.3-17.7); MEAN CORPUSCULAR HEMOGLOBIN 32 pg (25-34)
[2021-06-13 09:47] LABS: ABSOLUTE RETIC # 162 10e9/uL (24-90); BASOPHILS % (AUTO) 0 % (0-10); EOSINOPHILS % (AUTO) 0 % (0-10); HEMATOCRIT 29 % (40-54); LYMPHOCYTES # (AUTO) 2.1 10^3/uL (1.0-4.0); LYMPHOCYTES % (AUTO) 24 % (12-44); MEAN CORPUSCULAR HGB CONC 32 g/dL (32-36); MEAN CORPUSCULAR VOLUME 99 fL (80-99); MONOCYTES # (AUTO) 1.9 10^3/uL (0.0-1.0); MONOCYTES % (AUTO) 21 % (0-12); NEUTROPHILS % (AUTO) 45 % (42-75); RETICULOCYTE % 5.58 % (0.50-2.40); WHITE BLOOD COUNT 8.9 10^3/uL (4.3-11.0)
[2021-06-13] MEDS ORDERED: DIAZ5TAB49 PO (09:52)
[2021-06-13] MEDS ORDERED: FURO20TA4 PO (10:04)
[2021-06-13] MEDS ORDERED: AMLO-251 PO (10:04)
[2021-06-13] MEDS ORDERED: LISI20TA26 PO (10:04)
[2021-06-13] MEDS ORDERED: ISOS20TA13 PO (10:04)
[2021-06-13] MEDS ORDERED: MELO15TA39 PO (10:04)
[2021-06-13] MEDS ORDERED: CARV25TA PO (10:04)
[2021-06-13] MEDS ORDERED: METF-397 PO (10:04)
[2021-06-13 10:11] LABS: PLATELET COUNT 3 10^3/uL (130-400)
[2021-06-13 10:14] LABS: INR 1.2 (0.8-1.4); PROTHROMBIN TIME PATIENT 15.6 SEC (12.2-14.7)
[2021-06-13 10:33] LABS: BAND NEUTROPHILS 11 %; BASOPHILS % (MANUAL) 0 %; EOSINOPHILS % (MANUAL) 1 %; LYMPHOCYTES % (MANUAL) 29 %; METAMYELOCYTES % 12 %; MONOCYTES % (MANUAL) 23 %; MYELOCYTES % 4 %; NEUTROPHILS % (MANUAL) 20 %
[2021-06-13 10:34] LABS: ANISOCYTOSIS SLIGHT; POLYCHROMASIA SLIGHT
[2021-06-13] MEDS ORDERED: NS IV 500 ML 500 ML IV SCH (12:45)
[2021-06-13] MEDS ORDERED: LIDOCAINE 1% INJ 20 ML 20 ML VIAL ONE (13:29)
[2021-06-13] MEDS ORDERED: fentaNYL INJ 100 MCG/2 ML AMP ONE (13:29)
[2021-06-13] MEDS ORDERED: NS IV 1000 ML 0 ML ONE (13:29)
[2021-06-13] MEDS ORDERED: MIDAZOLAM 2 MG/2 ML (VERSED) VIAL ONE (13:29)
--- NOTE | 2021-06-13 14:41 | Pre-Op Note & Conscious Sedat ---
Pre-Operative Progress Note H&P Reviewed The H&P was reviewed, patient examined and no changes noted. Date H&P Reviewed: Jun 13, 2021 Time H&P Reviewed: 12:00 Pre-Op Diagnosis: thrombocytopenia Conscious Sedation Pre-Proced Time 12:00 ASA Score 2 For ASA 3 and 4: Consider anesthesia and medical clearance. Also, for patients with a history of failed moderate sedation consider anesthesia. Airway Lungs Heart ASA score ASA 1: a normal healthy patient ASA 2: a patient with a mild systemic disease (mid diabetes, controlled hypertension, obesity ASA 3: a patient with a severe systemic disease that limits activity (angina, COPD, prior Myocardial infarction) ASA 4: a patient with an incapacitating disease that is a constant threat to life (CHF, renal failure) ASA 5: a moribund patient not expected to survive 24 hrs. (ruptured aneurysm) ASA 6: a declared brain- patient whose organs are being harvested. For emergent operations, add the letter E after the classification Mallampati Classification Grade 2 Sedation Plan Analgesia, Amnesia, Plan communicated to team members, Discussed options with javid fontana/fam, Discussed risks with patient/fam The patient is an appropriate candidate to undergo the planned procedure, sedation, and anesthesia. The patient immediately re-assessed prior to indication. RANDALL MADDEN MD Jun 13, 2021 14:41
[2021-06-13] MEDS ORDERED: HYDROcodone/APAP 5 MG/325 MG (LORTAB) TAB PO PRN (14:45)
--- NOTE | 2021-06-13 18:19 | Diagnostic Imaging Report ---
INDICATION: Thrombocytopenia. Patient was brought to the CT suite and placed on table in the prone position. Axial imaging through the pelvis was performed to evaluate appropriate entry site. The low back was prepped and draped in the usual sterile fashion. A small amount of 1% lidocaine was utilized for local anesthesia. Procedure was performed utilizing conscious sedation with radiology nursing and constant patient monitoring. Patient was given a total of 100 mg of fentanyl intravenously. Total procedure time was 5 minutes. The 11-gauge bone marrow needle was advanced and placed with tip along the posterior cortex of right iliac bone. Needle was advanced through the cortex utilizing the bone marrow drill. Two bone marrow aspirates were obtained. Next, the drill was utilized to obtain a bone marrow core biopsy. The needle was removed, and hemostasis was obtained using manual compression. The patient tolerated the procedure well and left the department in stable condition. IMPRESSION: Successful CT bone marrow aspiration and biopsy utilizing conscious sedation. Pathology results are currently pending. Dictated by: Dictated on workstation # [id number]
== END 2021-06-13 16:20 | disposition home or self-care (01) ==
LOC: RAD 08:54 → SDC 14:11 → RAD 16:20
PROVIDERS: ATTEND Internal Medicine Hematology & Oncology
DX: D69.6 Thrombocytopenia, unspecified (principal)
CPT/HCPCS: 36430; 38222; 77012; 85007; 85027; 85045; 85610; 85730; 86900; 86901; 88237; 88264; P9035; 36415; 88377